=== PATIENT | female | born 1960 | race Caucasian/White ===

== ENCOUNTER → 2023-10-01 10:34 | Outpatient (REF) | payer OTHER, SELFPAY | LOC: WDC 10:34 | PROVIDERS: ATTENDING PHYSICIAN Nurse Practitioner | DX: Z12.31 Encounter for screening mammogram for malignant neoplasm of breast (principal) | CPT/HCPCS: 77063; 77067 ==

== ENCOUNTER → 2023-10-16 20:20 | Outpatient (REF) | payer OTHER, SELFPAY | LOC: MRI 20:20 | PROVIDERS: ATTENDING PHYSICIAN Nurse Practitioner | DX: R41.3 Other amnesia (principal) | CPT/HCPCS: 70553; A9575 ==

== ENCOUNTER → 2024-01-23 13:58 | Outpatient (REF) | payer OTHER, SELFPAY | LOC: HWEVLT 13:58 | PROVIDERS: ATTENDING PHYSICIAN Radiology Vascular & Interventional Radiology | DX: I83.892 Varicose veins of left lower extremity with other complications (principal) | CPT/HCPCS: 93971 ==

== ENCOUNTER → 2024-09-08 09:26 | Outpatient (REF) | payer OTHER, SELFPAY | LOC: RAD 09:26 | PROVIDERS: ATTENDING PHYSICIAN Nurse Practitioner | DX: E66.09 Other obesity due to excess calories (principal) | CPT/HCPCS: 77080 ==

== ENCOUNTER → 2024-11-25 11:23 | Outpatient (REF) | payer OTHER, SELFPAY | LOC: HWWDC 11:23 | PROVIDERS: ATTENDING PHYSICIAN Nurse Practitioner | DX: Z12.31 Encounter for screening mammogram for malignant neoplasm of breast (principal) | CPT/HCPCS: 77063; 77067 ==

== ENCOUNTER → 2025-01-15 11:04 | Outpatient (REF) | payer OTHER, SELFPAY | LOC: DHSLP 11:04 | PROVIDERS: ATTENDING PHYSICIAN Nurse Practitioner | DX: G47.33 Obstructive sleep apnea (adult) (pediatric) (principal) | CPT/HCPCS: 95800 ==

== ENCOUNTER → 2025-03-30 15:46 | Outpatient (REF) | payer OTHER, SELFPAY | LOC: RCS 15:46 | PROVIDERS: ATTENDING PHYSICIAN Physician Assistant Medical; FAMILY PHYSICIAN Nurse Practitioner | DX: R09.89 Other specified symptoms and signs involving the circulatory and respiratory systems (principal); R53.83 Other fatigue; I25.10 Atherosclerotic heart disease of native coronary artery without angina pectoris | CPT/HCPCS: 93306 ==